=== PATIENT | female | born 2000 | race Caucasian/White ===

== ENCOUNTER 2024-12-25 11:34 | Outpatient (REF) | payer OTHER, SELFPAY ==
--- OUTSIDE RECORDS SUMMARY | 2024-12-25 11:59 | XMS_ITS | Encounter Summary ---
Author Organization [employer] Address [address] [place] [address] [address] [place] [address] Care Team Providers Care Technology Professional Name Role Phone Makenzie Harmon NP Primary Care Provider [phone] Reason for Visit * Reason Onset Date Comments letter ok work 12/16/2024 Encounter Details Date Type Department Care Team ([facility] Contact Info) Description 12/16/2024 Telephone [facility] [address] [place], [place] [phone] Makenzie Harmon NP [address] [place] [address] letter ok work Social History Tobacco Use Types Packs/Day Years Used Date Smoking Tobacco: Never Smokeless Tobacco: Never Alcohol Use Standard Drinks/Week Comments Not Currently 0 (1 standard drink = 0.6 oz pur e alcohol) Depression Answer Date Recorded Patient Health Questionnaire-9 Score 0 12/27/2022 Housing Stability Answer Date Recorded What is your housing situation today? I have kisha nelson 05/30/[address] you li ve. Do you have problems with any of the following? None of the above 05/30/2023 Food Insecurity Answer Date Recorded Within the past 12 months, y ou worried that your food would run out before you got money to buy more: Never True 05/30/2023 Within the past 12 months,th e food you bought just didn't last and you didn't have enough money to get more: Never True 07/2022 Transportation Answer Date Recorded In the past 12 months, has l ack of transportation kept you from medical appts, meetings, work or from getting things needed for daily living? No 05/30/2023 Utilities Answer Date Recorded In the past 12 months, has t he electric, [employer], oil or water [employer] threatened to shut off services in your home? No 05/30/2023 Depression Answer Date Recorded Patient Health Questionnaire-2 Score 0 12/27/2022 Comments Unknown Sex and Gender Information Value Date Recorded Sex Assigned at Female 05/29/2022 10:16 AM EDT Legal Sex Female 10:16 AM EDT Gender Identity Female 05/29/2022 10:16 AM EDT Sexual Orientation Straight 05/29/2022 10 :16 AM EDT documented as of this encounter Miscellaneous Notes * Telephone Encounter - Arcelia Fernandes RN - 12/23/2024 1:39 PM EDT Tc to pt to let them know per covering provider Rogelio Paniagua I would advise that patient is seen in the office for reevaluation before a letter can be provided. Thanks . Pt verbalized understanding and appt booked for 12/26/24 with Mert Gaitan CNP. * Telephone Encounter - Mert Gaitan CNP - 12/23/2024 12:43 PM EDT Rogelio Paniagua I would advise that patient is seen in the office for reevaluation before a letter can be provided. Thanks * Telephone Encounter - Arcelia Fernandes RN - 12/23/2024 9:52 AM EDT Tc to pt requesting a letter stating that it's okay for them to work. Pt reports they have not seenortho yet and that their appt was pushed back to December. Pt advised that letter request is not done over the phone and that they need to physically come in to go to medical records for the request. Pt reports that their arm still hurts but they're ready to work. Pt verbalized understanding and message sent to covering provider for review. * Telephone Encounter - Radhika Valdiviaquez - 12/16/2024 11:57 AM EDT Tc from pt requesting a letter that say that she is ok to work Contact pt at [phone] documented in this encounter Plan of Treatment Upcoming Encounters Date Type Department Care Team (Late st Contact Info) Description 12/26/2024 2:45 PM EDT Office Visit [facility] [address] [place] [phone] Mert Gaitan CNP [address] [place] [address] 02/18/2025 10:00 AM EDT Office Visit [address] [phone] Makenzie Harmon NP [address] [place] [phone] documented as of this encounter Visit Diagnoses Not on filedocumented in this encounter Additional Health Concerns Assessment Noted Time PHQ-9 Depression Total Score: 0 12/28/19 10:07 AM EDT documented as of this encounter Care Teams Technology Professional Relationship Specialty Start Date End Date Makenzie Harmon NP [address] [place] [phone] PCP - General Family Medicine 05/08/23 documented as of this encounter
[2024-12-28 18:58] LABS: TS Negative Control Passed; TS Panel A 0; TS Panel B 2; TS Positive Control Passed; TSpotTB Negative (Negative)
== END 2024-12-25 11:35 | disposition home or self-care (01) ==
LOC: HO.LAB 11:34
PROVIDERS: Visit Provider Nurse Practitioner
DX: Z11.1 Encounter for screening for respiratory tuberculosis (principal)
CPT/HCPCS: 36415; 86481